=== PATIENT | male | born 1990 | race Hispanic/Latino ===

== ENCOUNTER 2024-06-13 13:34 | Emergency (ER) | payer SELFPAY ==
[~2024-06-13] VITALS: Ht 177.8 cm; Wt 165.6 kg
[2024-06-13 14:36] LABS: BASOPHILS # (AUTO) 0.04 K/uL (0.00-0.20); BASOPHILS % (AUTO) 0.9 % (0.0-5.0); EOSINOPHILS # (AUTO) 0.04 K/uL (0.00-0.70); EOSINOPHILS % (AUTO) 0.9 % (0.0-8.0); HEMATOCRIT 36.6 % (42-54); IMMATURE GRANULOCYTE ABSOLUTE 0.02 K/uL (0-1); LYMPHOCYTES # (AUTO) 0.8 K/uL (1.0-4.8); LYMPHOCYTES % (AUTO) 18.2 % (21.0-51.0); MEAN CORPUSCULAR HEMOGLOBIN 36.3 pg (27.0-33.0); MEAN CORPUSCULAR HGB CONC 34.4 g/dL (32.0-36.0); MEAN CORPUSCULAR VOLUME 105.5 fL (79-99); MONOCYTES # (AUTO) 0.4 K/uL (0.1-1.0); MONOCYTES % (AUTO) 8.1 % (3.0-13.0); NEUTROPHILS # (AUTO) 3.3 K/uL (1.8-7.7); NEUTROPHILS % (AUTO) 71.5 % (40.0-77.0); PLATELET COUNT (AUTO) 51 K/uL (130-400); RED BLOOD CELL COUNT(AUTO) 3.47 MIL/uL (4.50-6.20); RED CELL DISTRIBUTION WIDTH 15.2 % (11.0-15.5); WHITE BLOOD COUNT (AUTO) 4.6 K/uL (4.8-10.8)
[2024-06-13 14:42] LABS: CREATININE 0.8 mg/dL (0.5-1.3); POTASSIUM 3.8 mmol/L (3.5-5.1)
[2024-06-13 14:54] LABS: ALBUMIN 2.8 g/dL (3.5-5.0); BILIRUBIN,TOTAL 4.9 mg/dL (0.2-1.0)
[2024-06-13 15:12] LABS: PLATELET MORPHOLOGY COMMENT DECREASED
--- NOTE | 2024-06-13 16:24 | HMCIMG ---
CT ABDOMEN WITHOUT CONTRAST. CT PELVIS WITHOUT CONTRAST. INDICATION: Left lower abdominal/inguinal pain TECHNIQUE: Routine transaxial imaging using 5 mm slice thickness through the abdomen and pelvis without the administration of IV contrast. Thin slice reconstructions are also provided. Coronal and sagittal reformatted images acquired for interpretation. CT was performed with one or more of the following dose reduction techniques: Automated exposure control, adjustment of the mA and/or kV according to patient size, or use of iterative reconstruction technique. COMPARISON: None FINDINGS: ON NONCONTRAST IMAGING: ABDOMEN: Extensive gantry artifact secondary to patient body habitus. Heart size is normal. Visible lung bases are clear. No abnormal renal calcifications, hydronephrosis, perinephric inflammation, or proximal hydroureter detected. The liver is normal in size and smooth in contour without biliary duct dilation. Diffuse low attenuation of the liver parenchyma suggests fatty change. The spleen is normal in size and attenuation. Suspect pericholecystic inflammatory fat stranding. The pancreas appears normal without pancreatic duct dilation. The adrenal glands appear normal. No significant abdominal, retrocrural or retroperitoneal adenopathy noted. No evidence for intra-abdominal free air or organized fluid collection. No aortic aneurysmal dilation identified. Small amount of free fluid within the lower abdomen extending into the right paracolic gutter. PELVIS: No abnormal calcifications within the urinary bladder or distal ureters. No evidence for free air or organized pelvic fluid collection. No significant pelvic adenopathy detected. Visualized small and large bowel loops appear unremarkable. Terminal ileum appears unremarkable. The appendix appears normal. Shallow broad-based posterior disc-osteophyte complex formation at the L5-S1 level contributing to mild central canal stenosis. IMPRESSION: 1. Suspect acute cholecystitis. Sonographic imaging is advised for further evaluation. 2. Hepatic steatosis. 3. Small amount of lower abdominal free fluid extending into the right paracolic gutter. 4. No evidence for urolithiasis.
--- NOTE | 2024-06-13 16:28 | HMCIMG ---
ULTRASOUND ABDOMEN LIMITED INDICATION: Right upper abdominal pain COMPARISON: None FINDINGS: Examination is limited secondary to patient body habitus. The liver is normal in size, and increased in echogenicity; no focal lesion demonstrated. Liver is normal in size on the corresponding CT study. Pancreas, gallbladder, right kidney, and common bile duct were not well-demonstrated secondary to extensive overlying bowel gas. No evidence for calculi, sludge or pericholecystic fluid. 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 Wall thickness measures 3.0 mm. No free fluid demonstrated. IMPRESSION: Hepatic steatosis. Pancreas, gallbladder, right kidney, and common bile duct were not well-demonstrated secondary to extensive overlying bowel gas. If concern for cholecystitis, nuclear medicine hepatobiliary scan may be necessary for further evaluation.
--- NOTE | 2024-06-13 16:34 | ERN ---
General Chief Complaint: Abdominal Pain Stated Complaint: SENT BY PHYS Time Seen by MD: 13:35 Source: patient History of Present Illness Initial Comments Patient is a 35-year-old male coming in to be evaluated for abdominal pain. Patient states that he has been having abdominal pain for some time. He states that he noticed his abdomen distended and came in for further evaluation. No fever or chills no nausea no vomiting. Allergies: Coded Allergies: No Known Drug Allergies (Unverified Allergy, Unknown, 06/13/24) Past Medical History Past Medical History: Alcoholism, Hypertension Past Surgical History: None ROS Dictation CONSTITUTIONAL: No chills, no fever, no weakness, no diaphoresis, no malaise. HEAD/FACE: No signs of trauma. EENT: No eye pain, no blurred vision, no tearing, no double vision, no ear pain, no ear discharge, no nose pain, no nasal congestion, no throat pain, no throat swelling, no mouth pain. RESPIRATORY: No cough, no orthopnea, no SOB, no stridor, no wheezing. CARDIOVASCULAR: No chest pain, no edema, no palpitations, no syncope. GASTROINTESTINAL/ABDOMINAL: abdominal pain, no constipation, no diarrhea, no nausea, no vomiting. GENITOURINARY: No abnormal discharge, no dysuria, no frequent urination, no hematuria. No complaints of pain in the genitals. MUSCULOSKELETAL: No back pain, no gout, no joint pain, no joint swelling, no muscle pain, no muscle stiffness, no neck pain. INTEGUMENTARY: No change in color, no change in hair/nails, no dryness, no lesion, no lumps, no rash. NEUROLOGICAL/PSYCH: No anxiety, not depressed, no emotional problem, no headache, no numbness, no pre-existing deficit, no history of seizures, no tremors, no weakness. HEMATOLOGIC/LYMPHATIC: Not anemic, no history of blood clots, no apparent bleeding, no bruising, glands not swollen. All Systems Negative, Except as Noted. Physical Exam Physical Exam Dictation VITAL SIGNS: Reviewed. GENERAL APPEARANCE: Alert, oriented x3, no acute distress, obese. HEAD AND FACE: Non-traumatic. EYES: PERRL, pink conjunctivas, eyelid no trauma, anterior chamber clear. EARS: Pinnas intact and no signs of trauma or erythema. Ear canals clear and no discharge. TMs no erythema. NOSE: No discharge, no bleeding. OROPHARYNX: Mouth normal, teeth no caries, tongue pink. Pharynx clear, no erythema. Tonsils no exudates, no abscesses noted. Mucous membrane moist. NECK: Supple, non-tender, no thyromegaly, no masses, no JVD, no bruits. BREAST: Deferred. CHEST: No tenderness, no crepitus, no paradoxical movement, no retractions. LUNGS: Clear, well-ventilated, symmetric, no rales, no wheezing, no rhonchi, no stridor, good breath sounds bilaterally. HEART: Regular rate, regular rhythm, no murmur, no gallops. VASCULAR: No peripheral edema. ABDOMEN: Soft, positive bowel sounds, nondistended, no guarding, nontender, no rebound, no masses no hepatomegaly, no splenomegaly, no Pickens's sign, no hernias. RECTAL: Deferred. GENITAL: Deferred. NEUROLOGICAL: Normal speech, gross motor function intact, gross sensory function intact. MUSCULOSKELETAL: Neck nontender, full range of motion, back nontender, full range of motion. EXTREMITIES: Nontender, full range of motion. SKIN: Color pink, dry, no turgor, no rash, no lacerations, no abrasions, no contusions. LYMPHATICS: Deferred. Results Laboratory and Microbiology Lab and Micro Result Laboratory Tests Test 06/13/24 14:25 06/13/24 16:28 White Blood Count 4.6 K/uL (4.8-10.8) L Red Blood Count 3.47 MIL/uL (4.50-6.20) L Hemoglobin 12.6 g/dL (14.0-18.0) L Hematocrit 36.6 % (42-54) L Mean Corpuscular Volume 105.5 fL (79-99) H Mean Corpuscular Hemoglobin 36.3 pg (27.0-33.0) H Mean Corpuscular Hemoglobin Concent 34.4 g/dL (32.0-36.0) Red Cell Distribution Width 15.2 % (11.0-15.5) Platelet Count 51 K/uL (130-400) L Mean Platelet Volume 11.9 fL (7.5-10.5) H Immature Granulocyte % (Auto) 0.4 % (0-1) Neutrophils (%) (Auto) 71.5 % (40.0-77.0) Lymphocytes (%) (Auto) 18.2 % (21.0-51.0) L Monocytes (%) (Auto) 8.1 % (3.0-13.0) Eosinophils (%) (Auto) 0.9 % (0.0-8.0) Basophils (%) (Auto) 0.9 % (0.0-5.0) Neutrophils # (Auto) 3.3 K/uL (1.8-7.7) Lymphocytes # (Auto) 0.8 K/uL (1.0-4.8) L Monocytes # (Auto) 0.4 K/uL (0.1-1.0) Eosinophils # (Auto) 0.04 K/uL (0.00-0.70) Basophils # (Auto) 0.04 K/uL (0.00-0.20) Absolute Immature Granulocyte (auto 0.02 K/uL (0-1) Nucleated Red Blood Cells 0.0 % (0.0-0.19) Platelet Morphology Comment DECREASED Red Blood Cell Morphology See comments Sodium Level 140 mmol/L (136-145) Potassium Level 3.8 mmol/L (3.5-5.1) Chloride Level 102 mmol/L (101-111) Carbon Dioxide Level 27 mmol/L (21-32) Blood Urea Nitrogen 8 mg/dL (7-18) Creatinine 0.8 mg/dL (0.5-1.3) Glomerular Filtration Rate Calc 121 mL/min (>90) Random Glucose 144 mg/dL (70-105) H Total Calcium 8.6 mg/dL (8.5-10.1) Total Bilirubin 4.9 mg/dL (0.2-1.0) H Aspartate Amino Transf (AST/SGOT) 107 U/L (10-37) H Alanine Aminotransferase (ALT/SGPT) 51 U/L (12-78) Alkaline Phosphatase 187 U/L (50-136) H Total Creatine Kinase 199 U/L (21-232) Total Protein 9.0 g/dL (6.0-8.3) H Albumin 2.8 g/dL (3.5-5.0) L Lipase 169 U/L (16-77) H Urine Color DARK-YELLOW (YELLOW) Urine Appearance CLOUDY (CLEAR) H Urine pH 6.0 (5.0-8.0) Urine Specific [place] 1.028 (1.001-1.031) Urine Protein 30 mg/dL (NEGATIVE) H Urine Glucose (UA) NEGATIVE mg/dL (NEGATIVE) Urine Ketones NEGATIVE mg/dL (NEGATIVE) Urine Occult Blood NEGATIVE (NEGATIVE) Urine Nitrate NEGATIVE (NEGATIVE) Urine Bilirubin 1 mg/dL (NEGATIVE) H Urine Urobilinogen 12 mg/dL (0.2-1.0) H Urine Leukocyte Esterase NEGATIVE Dima/uL Urine RBC 2-5 /HPF (0-1) H Urine WBC 2-5 /HPF (0-1) H Urine Squamous Epithelial Cells FEW /HPF (0-2) Urine Bacteria RARE /HPF (None Seen) Labs Reviewed?: Yes EKG/XRAY/US/CT/MRI Ultrasound Comment [place] [address] [address] IMAGING REPORT Signed PATIENT: DANICA BRUCE MR#: [id number] : 1990 SEX: M AGE: 34 LOCATION: [facility] ORDER 1550 STATUS: [facility] REPORT#: [id number] SERVICE [id number] REASON: ruq ORDERING PHYSICIAN: NIKOLAS URBINA MD PROCEDURE: ABDRUQLTD - US ABDOMINAL RUQ\LTD ULTRASOUND ABDOMEN LIMITED INDICATION: Right upper abdominal pain COMPARISON: None FINDINGS: Examination is limited secondary to patient body habitus. The liver is normal in size, and increased in echogenicity; no focal lesion demonstrated. Liver is normal in size on the corresponding CT study. Pancreas, gallbladder, right kidney, and common bile duct were not well-demonstrated secondary to extensive overlying bowel gas. No evidence for calculi, sludge or pericholecystic fluid. 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 Wall thickness measures 3.0 mm. No free fluid demonstrated. IMPRESSION: Hepatic steatosis. Pancreas, gallbladder, right kidney, and common bile duct were not well-demonstrated secondary to extensive overlying bowel gas. If concern for cholecystitis, nuclear medicine hepatobiliary scan may be necessary for further evaluation. DICTATED BY: YENI MORALES MD DATE: 06/13/24 1399 ELECTRONICALLY SIGNED BY: YENI MORALES MD DATE: 06/13/[address] Scan Comment [facility] [address] [place], [place] [id number] IMAGING REPORT Signed PATIENT: DANICA BRUCE MR#: [id number] : 1990 SEX: M AGE: 34 LOCATION: [facility] ORDER 1550 STATUS: REG ER REPORT#: [id number] SERVICE [id number] REASON: abd pain ORDERING PHYSICIAN: NIKOLAS URBINA MD PROCEDURE: ABD PEL WO - CT ABDOMEN/PELVIS W/O CONTRAST CT ABDOMEN WITHOUT CONTRAST. CT PELVIS WITHOUT CONTRAST. INDICATION: Left lower abdominal/inguinal pain TECHNIQUE: Routine transaxial imaging using 5 mm slice thickness through the abdomen and pelvis without the administration of IV contrast. Thin slice reconstructions are also provided. Coronal and sagittal reformatted images acquired for interpretation. CT was performed with one or more of the following dose reduction techniques: Automated exposure control, adjustment of the mA and/or kV according to patient size, or use of iterative reconstruction technique. COMPARISON: None FINDINGS: ON NONCONTRAST IMAGING: ABDOMEN: Extensive gantry artifact secondary to patient body habitus. Heart size is normal. Visible lung bases are clear. No abnormal renal calcifications, hydronephrosis, perinephric inflammation, or proximal hydroureter detected. The liver is normal in size and smooth in contour without biliary duct dilation. Diffuse low attenuation of the liver parenchyma suggests fatty change. The spleen is normal in size and attenuation. Suspect pericholecystic inflammatory fat stranding. The pancreas appears normal without pancreatic duct dilation. The adrenal glands appear normal. No significant abdominal, retrocrural or retroperitoneal adenopathy noted. No evidence for intra-abdominal free air or organized fluid collection. No aortic aneurysmal dilation identified. Small amount of free fluid within the lower abdomen extending into the right paracolic gutter. PELVIS: No abnormal calcifications within the urinary bladder or distal ureters. No evidence for free air or organized pelvic fluid collection. No significant pelvic adenopathy detected. Visualized small and large bowel loops appear unremarkable. Terminal ileum appears unremarkable. The appendix appears normal. Shallow broad-based posterior disc-osteophyte complex formation at the L5-S1 level contributing to mild central canal stenosis. IMPRESSION: 1. Suspect acute cholecystitis. Sonographic imaging is advised for further evaluation. 2. Hepatic steatosis. 3. Small amount of lower abdominal free fluid extending into the right paracolic gutter. 4. No evidence for urolithiasis. DICTATED BY: YENI MORALES MD DATE: 06/13/24 161 ELECTRONICALLY SIGNED BY: YENI MORALES MD DATE: 06/13/24 1624 [facility] MDM: Differential diagnosis: Abdominal discomfort, back discomfort, history of alcohol abuse, history of marijuana abuse Patient is a 34-year-old male coming in to be evaluated for general abdominal discomfort. Per patient has not followed up with his PCP he did disclose that he does drink alcohol and smokes cannabis. 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 ED Course Orders Procedure Category Date Status Time Cbc With Differential LAB 06/13/24 Complete 14:07 Comprehensive LAB 06/13/24 Complete Metabolic Panel 14:07 Urinalysis Profile LAB 06/13/24 Complete 14:07 Creatine Kinase, Total LAB 06/13/24 Complete 14:07 Lipase LAB 06/13/24 Complete 14:07 Us Abdominal Ruq\Ltd US 06/13/24 Resulted 15:43 Ct Abdomen/Pelvis W/O CT 06/13/24 Resulted Contrast 15:43 Vital Signs Date Time Temp Pulse Resp B/P (MAP) Pulse Ox O2 Delivery O2 Flow Rate FiO2 06/13/24 15:38 99.0 127 20 153/80 99 Room Air* 0 21 06/13/24 13:48 98.2 126 18 177/93 98 Room Air DX & DISP Disposition: Discharge Departure Impression: Primary Impression: Abdominal discomfort Additional Impressions: History of alcohol abuse, Cannabis abuse Condition: Stable Additional Instructions: FOLLOW-UP WITH PRIMARY CARE PROVIDER IN 1 TO 2 DAYS. TAKE MEDICATIONS DIRECTED HERE IN THE EMERGENCY ROOM. OKAY TO CONTINUE HOME MEDICATIONS UNLESS OTHERWISE DISCUSSED DURING YOUR VISIT IN THE EMERGENCY ROOM TODAY. RETURN TO YOUR NEAREST EMERGENCY ROOM IF SYMPTOMS WORSEN OR IF THERE IS NO IMPROVEMENT. CALL 911 IF YOU NEED IMMEDIATE ASSISTANCE. TAKE TYLENOL [id number] NEEDED AND IF NO CONTRAINDICATIONS ARE PRESENT. INCREASE ORAL HYDRATION. A WOUND CULTURE OR URINE CULTURE WAS ORDERED HERE IN THE EMERGENCY ROOM DEPARTMENT PLEASE FOLLOW-UP WITH PRIMARY CARE PROVIDER AND ADVISE THEM TO GET REPEAT PORTS FROM OUR FACILITY. IF YOU HAD ANY PAUL WRAP/SPLINTS THAT WERE APPLIED HERE, PLEASE DO NOT REMOVE THEM UNTIL YOU SEE YOUR PRIMARY CARE OR SPECIALTY. Referrals: Referrals: SELF,REFERRAL (PCP) FRANCINE JEAN MD Time of Disposition: 17:14 NIKOLAS URBINA MD Jun 13, 2024 16:34
[2024-06-13 16:59] LABS: APPEARANCE,URINE CLOUDY (CLEAR); BILIRUBIN,URINE 1 mg/dL (NEGATIVE); COLOR,URINE DARK-YELLOW (YELLOW); GLUCOSE, URINE (UA) NEGATIVE (NEGATIVE); KETONES,URINE NEGATIVE (NEGATIVE); LEUKOCYTE ESTERASE ,URINE NEGATIVE Leu/uL (NEGATIVE); NITRATE,URINE NEGATIVE (NEGATIVE); OCCULT BLOOD,URINE NEGATIVE (NEGATIVE); PROTEIN,URINE 30 mg/dL (NEGATIVE); UROBILINOGEN,URINE 12 mg/dL (0.2-1.0)
[2024-06-13 17:00] LABS: ADD UA MICROSCOPIC YES
[2024-06-13 17:05] LABS: BACTERIA,URINE RARE /HPF (None Seen); MUCUS,URINE FEW LPF (None Seen); SQUAMOUS EPITHELIAL CELL,UR FEW /HPF (0-2)
[2024-06-13 17:43] VITALS: BP 144/76; PULSE 117; RESP 20; TEMP 98.3; O2SAT 99
--- NOTE | 2024-06-13 17:45 | NUR ---
PATIENT WAS DC'D BY DR URBINA TODAY PATIENT WAS CONCERNED ABOUT ABDOMINAL DISTENTION AND HARD TO VOID, BASED ON STUDIES DR URBINA BELIEVED THAT HE HAS "FATTY LIVER" PER PATIENT DR URBINA SPOKE TO PATIENT AND EXPLAINED HIS CONDITION, I PROVIDED PATIENT WITH LAB RESULTS AND STUDIES TO TAKE TO PCP, PLATELETS AT 51 I EDUCATED PATIENT ON ABSTAINING FROM ALCOHOL AND PROVIDED INFORMATION ON HOW TO PATIENT AMBULATED OUT OF ER [facility], NO COMPLICATIONS
== END 2024-06-13 17:30 | disposition home or self-care (01) ==
LOC: EDH 13:34
DX: R10.84 Generalized abdominal pain (principal); F10.10 Alcohol abuse, uncomplicated; F12.10 Cannabis abuse, uncomplicated; I10 Essential (primary) hypertension
CPT/HCPCS: 36415; 74176; 76705; 80053; 81001; 82550; 83690; 85025; 99284